=== PATIENT | female | born 1930 | race Caucasian/White ===

== ENCOUNTER 2017-04-22 06:40 | Inpatient (IN) | payer OTHER, MEDICARE ==
[~2017-04-22] VITALS: Ht 172.7 cm; Wt 81.7 kg
--- NOTE | ~2017-04-22 | H ---
[facility] [address] HISTORY AND PHYSICAL Name: ERNESTINA ROSALES Room #: 446-P [facility] .R.#: [id number] Admission: 04/22/17 Attend Phys: Ifrah Morton MD Discharge: Date of : 32 Report #: [id number] THIS REPORT FOR: //name// CC: Ifrah Morton DATE OF SERVICE: 04/22/2017 HISTORY OF PRESENT ILLNESS: The patient is an 86-year-old female who was brought to the Emergency Room after being found on the floor in the bathroom. The patient was complaining of pain on her left hip and left side of her body, but also she was complaining of pain all over her body. The patient had extensive workup done in the Emergency Room that did not show anything, but the patient was unable to ambulate. For this reason, she was admitted to the hospital. During the night, I received a call from the nurse indicating that the patient was having some abdominal pain and some nausea. For this reason, I started her on some pain medications. The patient did not have any actual vomiting. Unfortunately, the patient is not able to give me any information because of her dementia. PAST MEDICAL HISTORY: Significant for dementia, hypothyroidism, depression, anxiety. MEDICATIONS: Reviewed. ALLERGIES: No known drug allergies. SOCIAL HISTORY: No recent history of smoking, alcohol use or drug use. FAMILY HISTORY: Noncontributory. REVIEW OF SYSTEMS: The patient is alert. She is not complaining of any headache. She is not having any neck pain. She denies any pain in the arms or legs. The patient is complaining of some abdominal pain. PHYSICAL EXAMINATION: VITAL SIGNS: Showed a temperature of 98.2, pulse 71, respirations 20, blood pressure 132/72. HEAD AND NECK: Unremarkable. NECK: Supple. LUNGS: Clear to auscultation with good air entry bilaterally. CARDIOVASCULAR: S1, S2, without any murmur or gallop. ABDOMEN: Showed distended abdomen, generalized tenderness with increasing tenderness on the lower part of the abdomen. No rebound tenderness. Bowel sounds were positive. EXTREMITIES: Without any edema. [facility] [address] [place] [address] HISTORY AND PHYSICAL Name: ERNESTINA ROSALES Vineet Room #: 446-P [facility] [place] .R.#: [id number] Admission: 04/22/17 Attend Phys: Ifrah Morton MD Discharge: Date of : 32 Report #: [id number] LABORATORY DATA: The patient's bladder scan was [address] of the brain showed atrophic changes without any acute changes. The patient's CT of the cervical spine showed degenerative changes without any acute process. X-ray of the hips showed scoliosis, pelvic old trauma and degenerative changes and no acute process. X-ray of the left shoulder was negative. Basic metabolic panel showed a sodium 143, potassium 3.9, chloride 106, bicarbonate 31, BUN 16, creatinine 1.1. CBC with diff showed white count of 8, hemoglobin 12.0, hematocrit 36.0, platelet count 231, MCV 103, neutrophils are 66%. CT of the left hip showed no acute osseous abnormalities identified. Urinalysis showed pH of 8.5, blood +2, trace of leukocytes, white blood cells 6-15, red blood cells 3-10 and bacteria ASSESSMENT AND PLAN: 1. Status post fall with left hip and left arm pain. 2. Abdominal pain with distention. 3. Dementia. The patient was admitted to the hospital with the above-mentioned diagnoses. I will repeat the patient's labs. I will have a CT scan of the abdomen and pelvis. We will continue with the pain management. We will have Physical Therapy and Occupational Therapy to work with the patient. <ELECTRONICALLY SIGNED> By: Ifrah Morton MD 04/24/17 [id number] Ifrah Morton MD /nt
[2017-04-22 06:43] VITALS: BP 132/72
[2017-04-22] MEDS ORDERED: SYNTHROID25 MCG PO (07:37)
[2017-04-22] MEDS ORDERED: ARICEPT 5 MG TAB5 MG PO (07:38)
[2017-04-22] MEDS ORDERED: SERTRALINE HCL25 M1 PO (07:39)
[2017-04-22] MEDS ORDERED: APAP650 PO (07:39)
[2017-04-22] MEDS ORDERED: TYLENOL325 MG PO (07:40)
[2017-04-22] MEDS ORDERED: MIRALAX17 GM PO (07:40)
[2017-04-22] MEDS ORDERED: COLACE100 MG PO (07:41)
[2017-04-22] MEDS ORDERED: SEROQUEL 25 MG25 M1 PO (07:41)
[2017-04-22] MEDS ORDERED: XANAX 0.25 MG0.25 MG PO (07:42)
[2017-04-22 08:12] LABS: ABSOLUTE NEUTROPHILS 5.3 thou/uL (1.4-8.2); BASOPHILS 0.4 % (0.0-2.0); EOSINOPHILS 1.9 % (0.0-3.0); LYMPHOCYTES 22.7 % (24.0-44.0); MCH 34.3 pg (26.0-34.0); MCHC 33.2 g/dL (28.0-37.0); PLATELET COUNT 231 thou/uL (150-400); RDW 14.2 % (10.5-14.5)
[2017-04-22 08:16] LABS: CALCIUM 8.9 mg/dL (8.5-10.1); CREATININE 1.1 mg/dL (0.6-1.0); POTASSIUM 3.9 mmol/L (3.5-5.1)
[2017-04-22 12:21] VITALS: BP 132/72
[2017-04-22] MEDS ORDERED: NEURONTIN 300300 M1 PO (14:29)
[2017-04-22] MEDS ORDERED: PREDNISONE 10 M10 MG PO (14:31)
[2017-04-22 16:50] VITALS: BP 121/62
[2017-04-22 17:11] LABS: URINE BILIRUBIN NEGATIVE (Negative); URINE BLOOD 2+ (Negative); URINE CLARITY CLEAR; URINE COLOR YELLOW; URINE GLUCOSE-RANDOM* NEGATIVE (Negative); URINE KETONES NEGATIVE (Negative); URINE LEUKOCYTES TRACE (Negative); URINE NITRITE NEGATIVE (Negative); URINE PROTEIN (DIPSTICK) NEGATIVE (Negative); URINE UROBILINOGEN 0.2 E.U./dl (0.2-1.0)
[2017-04-22 17:21] LABS: SQUAMOUS 0-3 Few /LPF (0-3); URINE WBC 6-15 Few /HPF (0-5)
[2017-04-22 17:22] LABS: BACTERIA 1-9 Few /HPF (None Seen); CASTS None Seen /LPF (None Seen); CRYSTALS None Seen /LPF (None Seen); URINE RBC 3-10 Few /HPF (0-2)
[2017-04-22 19:23] VITALS: BP 125/64
[2017-04-23 03:50] VITALS: BP 151/65
[2017-04-23 07:50] VITALS: BP 135/59
[2017-04-23 08:36] LABS: ABSOLUTE NEUTROPHILS 8.3 thou/uL (1.4-8.2); BASOPHILS 0.5 % (0.0-2.0); EOSINOPHILS 0.9 % (0.0-3.0); HEMATOCRIT 35.3 % (37.0-47.0); LYMPHOCYTES 9.9 % (24.0-44.0); MCH 34.7 pg (26.0-34.0); MCHC 33.9 g/dL (28.0-37.0); MCV 102.2 fL (80.0-100.0); MONOCYTES 8.6 % (1.0-8.0); PLATELET COUNT 234 thou/uL (150-400); POLYS 80.1 % (36.0-66.0); RBC 3.46 mil/uL (4.20-5.00); RDW 13.9 % (10.5-14.5); WBC 10.3 thou/uL (4.0-11.0)
[2017-04-23 08:46] LABS: POTASSIUM 4.4 mmol/L (3.5-5.1); TOTAL BILIRUBIN 0.6 mg/dL (<0.1-1.0); TOTAL PROTEIN 6.7 g/dL (6.4-8.2)
[2017-04-23 16:00] VITALS: BP 151/80
[2017-04-23 20:02] VITALS: BP 155/83
[2017-04-24 03:54] VITALS: BP 155/68
[2017-04-24 08:00] VITALS: BP 171/75
[2017-04-24 16:00] VITALS: BP 170/79
[2017-04-24 19:11] VITALS: BP 155/72
[2017-04-25 04:23] VITALS: BP 120/67
[2017-04-25 08:00] VITALS: BP 148/78
[2017-04-25 10:22] LABS: URINE BILIRUBIN NEGATIVE (Negative); URINE BLOOD TRACE (Negative); URINE CLARITY SL CLOUDY; URINE COLOR YELLOW; URINE GLUCOSE-RANDOM* NEGATIVE (Negative); URINE KETONES NEGATIVE (Negative); URINE PROTEIN (DIPSTICK) NEGATIVE (Negative)
[2017-04-25 10:23] LABS: URINE LEUKOCYTES-REFLEX TRACE (Negative); URINE NITRITE-REFLEX POSITIVE (Negative)
[2017-04-25 10:39] LABS: AMORPHOUS URATES Few /LPF (None Seen); BACTERIA-REFLEX >30 Many /HPF (None Seen); CASTS None Seen /LPF (None Seen); SQUAMOUS 0-3 Few /LPF (0-3); URINE RBC 0-2 Rare /HPF (0-2); URINE WBC-REFLEX 0-5 Rare /HPF (0-5)
[2017-04-25 16:00] VITALS: BP 156/65
[2017-04-25 19:13] VITALS: BP 153/85
[2017-04-26 04:07] LABS: HEMATOCRIT 33.4 % (37.0-47.0); HEMOGLOBIN 11.5 gm/dL (12.0-15.0); MCH 34.6 pg (26.0-34.0); MCHC 34.5 g/dL (28.0-37.0); MCV 100.2 fL (80.0-100.0); PLATELET COUNT 242 thou/uL (150-400); RBC 3.34 mil/uL (4.20-5.00); RDW 12.9 % (10.5-14.5); WBC 10.6 thou/uL (4.0-11.0)
[2017-04-26 04:35] VITALS: BP 146/64
[2017-04-26 04:35] LABS: ALBUMIN 2.8 g/dL (3.4-5.0); CALCIUM 8.1 mg/dL (8.5-10.1); CREATININE 0.8 mg/dL (0.6-1.0); POTASSIUM 4.2 mmol/L (3.5-5.1); TOTAL BILIRUBIN 0.8 mg/dL (<0.1-1.0); TOTAL PROTEIN 6.9 g/dL (6.4-8.2)
[2017-04-26 07:02] LABS: ABSOLUTE NEUTROPHILS 8.4 thou/uL (1.4-8.2)
[2017-04-26 08:42] VITALS: BP 153/56
[2017-04-26 16:05] VITALS: BP 142/66
[2017-04-26 19:16] VITALS: BP 149/64
[2017-04-27 04:16] VITALS: BP 174/72
[2017-04-27 06:22] LABS: HEMATOCRIT 32.7 % (37.0-47.0); HEMOGLOBIN 11.2 gm/dL (12.0-15.0); MCH 34.6 pg (26.0-34.0); MCHC 34.3 g/dL (28.0-37.0); MCV 100.7 fL (80.0-100.0); PLATELET COUNT 252 thou/uL (150-400); RBC 3.25 mil/uL (4.20-5.00); RDW 13.4 % (10.5-14.5)
[2017-04-27 06:42] LABS: CALCIUM 7.9 mg/dL (8.5-10.1); CREATININE 0.8 mg/dL (0.6-1.0); POTASSIUM 4.5 mmol/L (3.5-5.1)
[2017-04-27 08:00] VITALS: BP 182/68
[2017-04-27 08:40] LABS: ABSOLUTE NEUTROPHILS 9.5 thou/uL (1.4-8.2); PLATELET ESTIMATE NORMAL
[2017-04-27 16:00] VITALS: BP 150/72
[2017-04-27 20:10] VITALS: BP 147/68
[2017-04-28 03:51] VITALS: BP 161/76
[2017-04-28 05:48] LABS: ABSOLUTE NEUTROPHILS 12.9 thou/uL (1.4-8.2); EOSINOPHILS 1.1 % (0.0-3.0); HEMATOCRIT 31.9 % (37.0-47.0); HEMOGLOBIN 10.7 gm/dL (12.0-15.0); LYMPHOCYTES 8.5 % (24.0-44.0); MCH 34.1 pg (26.0-34.0); MCHC 33.7 g/dL (28.0-37.0); MCV 101.2 fL (80.0-100.0); MONOCYTES 11.5 % (1.0-8.0); PLATELET COUNT 238 thou/uL (150-400); POLYS 77.9 % (36.0-66.0); RBC 3.15 mil/uL (4.20-5.00); RDW 13.7 % (10.5-14.5); WBC 16.5 thou/uL (4.0-11.0)
[2017-04-28 07:40] LABS: CALCIUM 7.9 mg/dL (8.5-10.1); CREATININE 0.7 mg/dL (0.6-1.0); POTASSIUM 4.9 mmol/L (3.5-5.1)
[2017-04-28 09:06] VITALS: BP 148/62
[2017-04-28 15:43] VITALS: BP 146/64
[2017-04-28 20:00] VITALS: BP 149/70
[2017-04-29 04:50] VITALS: BP 158/70
[2017-04-29 08:00] VITALS: BP 139/65
== END 2017-04-29 18:00 | DRG 908 ==
LOC: ER 06:40 → EROBS 09:51 → 4S 09:51
PROVIDERS: Emergency Medicine; Internal Medicine
PROC: 0WQ0XZZ Repair Head, External Approach (ICD-10-PCS; principal; 2017-04-22)
DX: S09.90XA Unspecified injury of head, initial encounter (principal); N39.0 Urinary tract infection, site not specified; N17.9 Acute kidney failure, unspecified; E44.1 Mild protein-calorie malnutrition; R29.6 Repeated falls; S01.01XA Laceration without foreign body of scalp, initial encounter; F03.90 Unspecified dementia, unspecified severity, without behavioral disturbance, psychotic disturbance, mood disturbance, and anxiety; Z66 Do not resuscitate; F32.9 Major depressive disorder, single episode, unspecified; E03.9 Hypothyroidism, unspecified; R63.0 Anorexia; F41.9 Anxiety disorder, unspecified; R14.0 Abdominal distension (gaseous); Z79.899 Other long term (current) drug therapy; Z68.27 Body mass index [BMI] 27.0-27.9, adult; Z23 Encounter for immunization; W18.39XA Other fall on same level, initial encounter; Y93.89 Activity, other specified; Y92.89 Other specified places as the place of occurrence of the external cause; Y99.8 Other external cause status
CPT/HCPCS: 10195